=== PATIENT | male | born 1975 | race American Indian/Alaskan Native ===

== ENCOUNTER 2020-12-12 03:42 | Emergency (ER) | payer SELFPAY ==
--- NOTE | 2020-12-12 09:17 | Emergency Department Report ---
ED Back Pain/Injury HPI - General Chief Complaint: Back Pain/Injury Stated Complaint: BACK SPASM, CAN'T REALLY MOVE Time Seen by Provider: 12/12/20 09:12 Source: patient Limitations: No Limitations - History of Present Illness Initial Comments: 44-year-old male presents to ED with complaint of back pain. Patient states he was getting out of the shower yesterday, reach for Tylenol, and experienced a sharp pain in his back. Patient denies any radiation into the legs. He denies any numbness or weakness, bowel or bladder incontinence or retention. Patient states pain is worse when bending over and attempting to go from sitting to standing. Patient seen and examined in the waiting room as there are no beds available in the ED due to Covid pandemic. Complaint: back pain -: Last night Similar Symptoms Previously: Yes Place: home Radiation: none Severity: moderate Consistency: intermittent Improves With: immobilization Worsens With: movement Context: bending Associated Symptoms: denies: difficulty urinating, incontinence, fever/chills, constipation - Related Data Previous Rx's Medication Instructions Recorded Last Taken Type Naproxen [Naprosyn] 500 mg PO BID #20 tablet 12/12/20 Unknown Rx methOCARBAMOL [Robaxin TAB] 500 mg PO Q8HR PRN #20 tablet 12/12/20 Unknown Rx traMADoL [Ultram] 50 mg PO Q6HR PRN #7 tablet 12/12/20 Unknown Rx Allergies Allergy/AdvReac Type Severity Reaction Status Date / Time No Known Allergies Allergy Unverified 12/12/20 04:25 ED Review of Systems ROS: Stated complaint: BACK SPASM, CAN'T REALLY MOVE Other details as noted in HPI Comment: All other systems reviewed and negative Constitutional: denies: fever Musculoskeletal: back pain Neurological: denies: weakness, numbness, paresthesias ED Past Medical Hx - Past Medical History Previous Medical History?: Yes Hx Hypertension: Yes Additional medical history: high cholesterol - Surgical History Past Surgical History?: No - Medications Home Medications: Home Medications Medication Instructions Recorded Confirmed Last Taken Type Naproxen [Naprosyn] 500 mg PO BID #20 tablet 12/12/20 Unknown Rx methOCARBAMOL [Robaxin TAB] 500 mg PO Q8HR PRN #20 tablet 12/12/20 Unknown Rx traMADoL [Ultram] 50 mg PO Q6HR PRN #7 tablet 12/12/20 Unknown Rx ED Physical Exam - General Limitations: No Limitations General appearance: alert, in no apparent distress - Head Head exam: Present: atraumatic, normocephalic - Eye Eye exam: Present: normal appearance - ENT ENT exam: Present: mucous membranes moist - Neck Neck exam: Present: normal inspection - Respiratory Respiratory exam: Present: normal lung sounds bilaterally. Absent: respiratory distress - Cardiovascular Cardiovascular Exam: Present: regular rate, normal rhythm - GI/Abdominal GI/Abdominal exam: Present: soft. Absent: distended, tenderness - Extremities Exam Extremities exam: Present: normal inspection - Back Exam Back exam: Present: paraspinal tenderness. Absent: full ROM (Decreased range of motion secondary to pain) - Neurological Exam Neurological exam: Present: alert, oriented X3. Absent: motor sensory deficit - Psychiatric Psychiatric exam: Present: normal affect, normal mood - Skin Skin exam: Present: warm, dry, intact, normal color ED Course Vital Signs 12/12/20 12/12/20 04:27 10:35 Temperature 97.7 F 97.8 F Pulse Rate 81 82 Respiratory 16 18 Rate Blood Pressure 134/84 Blood Pressure 132/80 [Right] O2 Sat by Pulse 98 98 Oximetry ED Medical Decision Making - Medical Decision Making 44-year-old male with acute low back pain after bending over. Patient is ambulatory. No neuro deficits on exam. Patient will be discharged with prescriptions. Outpatient follow-up advised, return precautions given. - Differential Diagnosis Acute low back pain, sciatica, muscle strain, herniated disc Critical care attestation.: If time is entered above; I have spent that time in minutes in the direct care of this critically ill patient, excluding procedure time. ED Disposition Clinical Impression: Acute low back pain Disposition: HOME / SELF CARE / HOMELESS Is pt being admited?: No Condition: Stable Instructions: Acute Back Pain, Adult Prescriptions: Naproxen [Naprosyn] 500 mg PO BID #20 tablet methOCARBAMOL [Robaxin TAB] 500 mg PO Q8HR PRN #20 tablet PRN Reason: Muscle Spasm traMADoL [Ultram] 50 mg PO Q6HR PRN #7 tablet PRN Reason: Pain Referrals: MILLER RO II, MD [Staff Physician] - 3-5 Days Time of Disposition: 09:17
[2020-12-12 10:36] VITALS: BP 132/80
== END 2020-12-12 10:36 | disposition home or self-care (01) ==
LOC: ED 03:42
DX: M54.5 Low back pain (principal); I10 Essential (primary) hypertension; E78.00 Pure hypercholesterolemia, unspecified; Z79.899 Other long term (current) drug therapy
CPT/HCPCS: 99282